=== PATIENT | male | born 1975 | race Caucasian/White ===

== ENCOUNTER → 2022-04-09 09:01 | Outpatient (BNVA) | payer OTHER, SELFPAY | PROVIDERS: Family Provider General Practice; PCP Family Medicine; Visit Provider Family Medicine | DX: Z00.00 Encounter for general adult medical examination without abnormal findings (principal) | CPT/HCPCS: 80053; 80061; 85025 ==

== ENCOUNTER 2022-06-23 20:13 | Emergency (ER) | payer OTHER, SELFPAY ==
[2022-06-23 20:37] VITALS: BP 139/85; PULSE 75; RESP 14; TEMP 36.7; O2SAT 95; BMI 28.5
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
[2022-06-23] MEDS: tetanus-dipt-pertussis 0.5 mL SDV IM (21:44)
[2022-06-23] MEDS: lidocaine 1% INJ 10 mL (per mL) 20 ML INJECTION (21:46)
[2022-06-23] MEDS: lidocaine 2% INJ 20 mL INJECTION (22:59)
[2022-06-23 23:01] VITALS: PULSE 85; RESP 16; O2SAT 100
== END 2022-06-23 23:02 | disposition home or self-care (01) ==
PROVIDERS: Emergency Provider Emergency Medicine; Family Provider General Practice; PCP Family Medicine
DX: S81.011A Laceration without foreign body, right knee, initial encounter (principal); V86.59XA Driver of other special all-terrain or other off-road motor vehicle injured in nontraffic accident, initial encounter; S00.03XA Contusion of scalp, initial encounter; Z23 Encounter for immunization
CPT/HCPCS: 12034; 70450; 73562; 90471; 90715; 99285

== ENCOUNTER 2023-02-05 09:33 | Day surgery (SDC) | payer OTHER, SELFPAY ==
[2023-02-05 09:45] VITALS: BP 110/76; PULSE 72; RESP 18; TEMP 36.7; O2SAT 97; BMI 27.8
[2023-02-05] MEDS: sodium chloride 0.9% 1,000 ML 30 ML IV (09:51)
--- NOTE | 2023-02-05 10:09 | ANES.PREANE2 ---
Pre-Anesthetic Assessment Height/Weight: Height 1.8 m Weight 90.718 kg Temp Pulse Resp BP Pulse Ox O2 Del Method 98.1 F 72 18 110/76 97 Room Air 02/05/23 09:45 02/05/23 09:45 02/05/23 09:45 02/05/23 09:45 02/05/23 09:45 02/05/23 09:45 Operation Date: 02/05/23 10:30 Proposed Procedures p [id number] egd [id number] colon G0121 screen colon A risk z12.11,K21.9,Z80.0(Not Applicable) - Mitchell Holt DO s Colonoscopy(Not Applicable) - Mitchell Holt DO Familial anesthetic complications: None Was Beta Aaron taken within 24 hours: N/A Was Clonidine taken within 24 hours: N/A Last intake: Intake Last Liquid Date 02/04/23 Last Liquid Time 22:00 Last Solid Date 02/03/23 Social No alcohol and No tobacco Exam alert, oriented x 3, clear to auscultation bilaterally and regular rate & rhythm Airway Mallampati: Class I Dentition: full GI Gastroesophageal Reflux Disease Neuropsych Anxiety Anesthetic Plan ASA status: 2 Anesthesia: MAC Risk of > 500 ml blood loss (7ml/kg in children): No Medications/Allergies Home Medications Medication Instructions Recorded Confirmed Last Taken Type escitalopram oxalate 10 mg tablet 10 mg PO DAILY #30 tabs 04/09/22 02/05/23 02/04/23 Rx (Lexapro) pantoprazole 40 mg tablet,delayed 40 mg PO BID 6 weeks #84 tabs 02/03/23 02/05/23 02/04/23 Rx release (Protonix) Allergies Allergy/AdvReac Type Severity Reaction Status Date / Time No Known Allergies Allergy Verified 02/05/23 09:42 Current Medications Generic Name Dose Route Start Last Admin Trade Name Freq PRN Reason Stop Dose Admin Sodium Chloride 1,000 mls @ 30 mls/hr 02/05/23 09:45 02/05/23 09:51 Sodium Chloride 0.9% IV 02/06/23 09:44 30 mls/hr .Q24H WALTER Administration PFSH Anesthesia Medical History GERD (gastroesophageal reflux disease) Family History Father Cancer colon Social History Smoking and tobacco/nicotine status: current every day tobacco/nicotine user smokeless tobacco Smokeless tobacco user: chewing tobacco Substance/Drug Use: never Data Anesthesia Cardiac Studies: No Data to Display
--- NOTE | 2023-02-05 10:36 | W.PM.OPSUD ---
Surgery/Procedure H&P Update DATE OF PROCEDURE: February 05, 2023 DATE H&P PERFORMED: 02/03/23 H&P UPDATE INFORMATION: I have reviewed H&P completed within last 30 days, I have examined patient prior to procedure and No changes to prior documentation PLANNED PROCEDURE: Operation Date: 02/05/23 10:30 Proposed Procedures p [id number] egd [id number] colon G0121 screen colon A risk z12.11,K21.9,Z80.0(Not Applicable) - DO valerie lCay Colonoscopy(Not Applicable) - Mitchell Holt DO
[2023-02-05 11:09] VITALS: BP 111/62; PULSE 57; RESP 16; O2SAT 97
[2023-02-05 11:23] VITALS: BP 121/71; PULSE 52; RESP 16; O2SAT 97
--- NOTE | 2023-02-05 13:33 | ANE.PACU2 ---
Inpatient post-anesthesia follow up: Airway intact: Yes Vital signs: Temperature 98.1 F Pulse Rate 52 Respiratory Rate 16 Blood Pressure 121/71 Pulse Oximetry 97 Oxygen Delivery Me thod Room Air Oxygen Flow Rate Fraction of Inspir ed Oxygen Hydration adequate: Yes Nausea and vomiting: No Pain level: 1 Mental status: Baseline
== END 2023-02-05 11:45 | disposition home or self-care (01) ==
PROVIDERS: PCP Family Medicine; Visit Provider Surgery
PROC: 0DJ08ZZ Inspection of Upper Intestinal Tract, Via Natural or Artificial Opening Endoscopic (ICD-10-PCS; CPT 43235; principal; 2023-02-05 10:30)
PROC: 0DJD8ZZ Inspection of Lower Intestinal Tract, Via Natural or Artificial Opening Endoscopic (ICD-10-PCS; CPT 45378; 2023-02-05 10:30)
DX: Z12.11 Encounter for screening for malignant neoplasm of colon (principal); Z80.0 Family history of malignant neoplasm of digestive organs; K57.30 Diverticulosis of large intestine without perforation or abscess without bleeding; K44.9 Diaphragmatic hernia without obstruction or gangrene; K29.50 Unspecified chronic gastritis without bleeding; K21.00 Gastro-esophageal reflux disease with esophagitis, without bleeding; D12.5 Benign neoplasm of sigmoid colon; F41.9 Anxiety disorder, unspecified; F17.290 Nicotine dependence, other tobacco product, uncomplicated
CPT/HCPCS: 43239; 45385; 88305; 88342; J2704; J7030

== ENCOUNTER → 2024-10-03 09:57 | Outpatient (BNVA) | payer OTHER, SELFPAY | PROVIDERS: PCP Family Medicine; Visit Provider Family Medicine | DX: F41.9 Anxiety disorder, unspecified (principal); R53.83 Other fatigue | CPT/HCPCS: 80053; 80061; 84153; 84403; 84443; 85025 ==